=== PATIENT | male | born 1995 | race Caucasian/White ===

== ENCOUNTER 2016-11-23 15:39 | Emergency (ER) | payer OTHER ==
[~2016-11-23] VITALS: Ht 175.3 cm; Wt 84.0 kg
[2016-11-23 15:44] VITALS: BP 147/80; PULSE 70; RESP 16; TEMP 98.4; O2SAT 97
--- NOTE | 2016-11-23 16:29 | PD ---
HPI Chief Complaint: Skin Problem Time Seen by Provider: 16:20 Travel History International Travel<30 days: No Contact w/Intl Traveler<30days: No Traveled to known affect area: No History of Present Illness HPI 21-year-old male presents for evaluation of left hand pain. Symptoms started yesterday. Associated redness and warmth on the dorsal aspect left hand. Pain is worse with palpation or movement. He does not recall any trauma. He does note that he works as a carpet installation specialist stalling insulation products. He tends to not wear gloves. He tends to get small cuts on his hands because he does not wear gloves. His last tetanus vaccination is unknown. No other complaints. PFSH Past Medical History Diminished Hearing: No Tetanus Vaccination: < 5 Years Influenza Vaccination: No Past Surgical History Tonsillectomy: Yes Other Surgery: Yes (BROKEN NOSE) Social History Alcohol Use: No Tobacco Use: No Substance Use: No Allergies-Medications (Allergen,Severity, Reaction): Coded Allergies: No Known Allergies (Unverified , 11/23/16) Reported Meds & Prescriptions Reported Meds & Active Scripts Active Keflex (Cephalexin) 500 Mg Cap 500 Mg PO Q6H 10 Days Bactrim DS (Sulfamethoxazole-Trimethoprim) 800-160 Mg Tab 1 Tab PO BID Review of Systems Musculoskeletal: Positive: Pain Skin: Positive Other (positive for abrasions, redness, warmth, tenderness) Physical Exam Narrative GENERAL: Well-developed well-nourished male in no acute distress SKIN: Warm and dry. Patient has several small abrasions in the dorsal left hand. There is some erythema and warmth and tenderness to palpation to the dorsal left hand. Extremities: Skin as noted above. The patient has pain with range of motion of the left hand. There is no joint swelling. There is no tenderness to palpation along the tendon sheaths. Distal sensation and pulses are preserved. Data Data Last Documented VS Vital Signs Date Time Temp Pulse Resp B/P Pulse Ox O2 Delivery O2 Flow Rate FiO2 11/23/16 15:44 98.4 70 16 147/80 97 Orders Hand, Complete ([id number]) (11/23/16 ) Tetanus/Diphtheria Tox Adult (Tetanus/Di (11/23/16 16:30) Acetaminophen (Tylenol) (11/23/16 16:45) MDM Medical Decision Making Medical Screen Exam Complete: Yes Emergency Medical Condition: Yes Medical Record Reviewed: Yes Interpretation(s) CONCLUSION: 1. Soft tissue swelling without fracture Differential Diagnosis Cellulitis, retained foreign body, foreign body reaction, fracture Narrative Course I suspect that the patient has a cellulitic infection on the dorsal left hand secondary to several abrasions that the patient has received from his employment as a carpet installation specialist. Tetanus status has been updated. Diagnosis Primary Impression: Cellulitis Qualified Code: L03.114 - Cellulitis of left upper extremity Additional Instructions: Medication as prescribed. Warm compresses several times a day 10 minutes at a time. Ibuprofen or Tylenol for pain. Return for any emergent medical conditions. Med/Other Pt SpecificInfo: Prescription(s) given Scripts Cephalexin (Keflex)500 Mg [id number] Mg PO Q6H 10 Days Ref 0 Prov:Thomas Leal MD 11/23/16 Sulfamethoxazole-Trimethoprim (Bactrim DS)800-160 Mg Tab1 Tab PO BID #20 TAB Ref 0 Prov:Thomas Leal MD 11/23/16 Disposition: 01 DISCHARGE HOME Condition: Stable Erick Petersen Nov 23, 2016 16:29
[2016-11-23] MEDS ORDERED: TETANUS/DIPHTHERIA TOXOID ADULT 0.5 ML VIAL IM ONE (16:30)
[2016-11-23] MEDS ORDERED: BACT800T5 PO (16:38)
[2016-11-23] MEDS ORDERED: CEPH-460 PO (16:38)
[2016-11-23] MEDS ORDERED: ACETAMINOPHEN 325 MG TAB PO ONE (16:45)
--- NOTE | 2016-11-23 17:30 | RADHPO ---
EXAM DATE/TIME: 11/23/2016 16:44 [facility] COMPARISON: No previous studies available for comparison. INDICATIONS : Complains of left hand pain and swelling MEDICAL HISTORY : None. SURGICAL HISTORY : None. ENCOUNTER: Initial ACUITY: 2 days PAIN SCORE: 10/10 LOCATION: Left hand FINDINGS: Soft tissue swelling is present dorsally. There is no evidence of acute fracture. Bony mineralization is normal. Joint spaces are maintained. CONCLUSION: 1. Soft tissue swelling without fracture Zi Desir MD on November 23, 2016 at 17:28 Board Certified Radiologist. This report was verified electronically.
== END 2016-11-23 17:47 | disposition home or self-care (01) ==
LOC: PHED 15:39
DX: L03.114 Cellulitis of left upper limb (principal); Z23 Encounter for immunization
CPT/HCPCS: 73130; 90471; 90714

== ENCOUNTER 2016-12-07 13:43 | Emergency (ER) | payer OTHER ==
[~2016-12-07] VITALS: Ht 175.3 cm; Wt 82.3 kg
[~2016-12-07 13:43] MED LIST: BACT800T5 PO; CEPH-460 PO
[2016-12-07 13:47] VITALS: BP 151/99; PULSE 62; RESP 16; TEMP 98.1; O2SAT 100
[2016-12-07] MEDS ORDERED: MULTTAB67 PO (13:54)
[2016-12-07] MEDS ORDERED: ADDE30XR PO (13:54)
[2016-12-07] MEDS ORDERED: XANA1TAB2 PO (13:54)
[2016-12-07] MEDS ORDERED: TYLETAB34 PO (14:20)
[2016-12-07] MEDS ORDERED: CIPR-9 PO (14:20)
--- NOTE | 2016-12-07 14:27 | PD ---
HPI Chief Complaint: Laceration/Skin Injury Time Seen by Provider: 14:06 Travel History International Travel<30 days: No Contact w/Intl Traveler<30days: No Traveled to known affect area: No History of Present Illness HPI This patient complains of injury to his left leg. Yesterday he fell into an oyster bed and sustained several superficial injuries to his left foot and left leg. He washed it out good and clean it with peroxide. Severity is moderate. No alleviating factors. PFSH Past Medical History Medical History: Denies Significant Hx Diminished Hearing: No Influenza Vaccination: No Past Surgical History Surgical History: No Previous Surgery Tonsillectomy: Yes Other Surgery: Yes (BROKEN NOSE) Social History Alcohol Use: No Tobacco Use: No Substance Use: No Allergies-Medications (Allergen,Severity, Reaction): Coded Allergies: No Known Allergies (Unverified , 11/23/16) Reported Meds & Prescriptions Reported Meds & Active Scripts Active Reported Xanax (Alprazolam) 1 Mg Tab 1 Mg PO DAILY PRN Adderall Xr 24 HR (Amphetamine/Dextroamphetamine) 30 Mg Cap 30 Mg PO DAILY Once daily in the morning. Multiple Vitamin 1 Tab 1 Tab PO DAILY Review of Systems General / Constitutional: No: Fever HENT: No: Headaches Cardiovascular: No: Chest Pain or Discomfort Physical Exam Narrative SKIN: Inspection shows no rash or ulcers. Palpation shows no induration or nodules. Psych: Normal mood and affect. Normal insight and judgment. Left foot: A few minor abrasions. There is one wound underneath the first metatarsal head that should get some Steri-Strips Do not recommend tightly closing it with sutures, especially being a day old Left leg: A few minor abrasions. There is one wound over the mid tibia that we' ll get several Steri-Strips but I don't recommend suture closure Data Data Last Documented VS Vital Signs Date Time Temp Pulse Resp B/P Pulse Ox O2 Delivery O2 Flow Rate FiO2 12/07/16 13:54 62 16 12/07/16 13:47 98.1 151/99 100 MDM Medical Decision Making Medical Screen Exam Complete: Yes Emergency Medical Condition: Yes Medical Record Reviewed: Yes Differential Diagnosis Abrasions, laceration, wound Narrative Course I have reviewed the patient's electronic medical record. Covering for pseudomonas due to's placed her bed injury with Cipro empirically No sign of active wound infection Steri-Strips to to deepest of the wounds Tetanus is up-to-date Pain medicine given and work note provided Diagnosis Primary Impression: Unspecified open wound, left foot, initial encounter Additional Instructions: The patient was advised to follow up with their physician and return if they worsen. The patient was warned about potential sedation for the medications they will receive on prescription. Med/Other Pt SpecificInfo: Prescription(s) given Scripts Acetaminophen-Codeine (Tylenol-Codeine #3)300-30 mg Tab1 Tab PO Q6H PRN (PAIN) # 15 TAB Ref 0 Prov:Thomas Leal MD 12/07/16 Ciprofloxacin (Cipro)500 Mg [id number] Mg PO BID #10 TAB Ref 0 Prov:Thomas Leal MD 12/07/16 Disposition: 01 DISCHARGE HOME Condition: Stable Thomas Leal MD Dec 07, 2016 14:27
== END 2016-12-07 14:33 | disposition home or self-care (01) ==
LOC: PHEFT 13:43
DX: S91.312A Laceration without foreign body, left foot, initial encounter (principal); W45.8XXA Other foreign body or object entering through skin, initial encounter; Y93.9 Activity, unspecified; Y92.832 Beach as the place of occurrence of the external cause; Y99.9 Unspecified external cause status
CPT/HCPCS: 99282